=== PATIENT | female | born 1945 | race Caucasian/White ===

== ENCOUNTER 2016-08-28 13:21 | Emergency (ER) | payer OTHER ==
[~2016-08-28] VITALS: Ht 165.1 cm; Wt 75.1 kg
[2016-08-28] MEDS ORDERED: PERCOCET 5/31 TABLET PO (15:37)
[2016-08-28 15:56] VITALS: BP 141/97
== END 2016-08-28 15:56 | disposition home or self-care (01) ==
LOC: EME 13:21
DX: S42.252A Displaced fracture of greater tuberosity of left humerus, initial encounter for closed fracture (principal); W01.0XXA Fall on same level from slipping, tripping and stumbling without subsequent striking against object, initial encounter
CPT/HCPCS: 73030; 73060; 73090; 73110; 99281; 99284

== ENCOUNTER 2016-08-30 11:20 | Emergency (ER) | payer OTHER ==
[~2016-08-30] VITALS: Ht 165.1 cm; Wt 72.0 kg
[~2016-08-30 11:20] MED LIST: PERCOCET 5/31 TABLET PO
[2016-08-30 11:33] VITALS: BP 137/79
[2016-08-30] MEDS ORDERED: ROXICODONE5 MG PO (12:14)
== END 2016-08-30 12:40 | disposition home or self-care (01) ==
LOC: EME 11:20
DX: S42.302A Unspecified fracture of shaft of humerus, left arm, initial encounter for closed fracture (principal); M79.602 Pain in left arm
CPT/HCPCS: 99281; 99284; J2270